=== PATIENT | female | born 1980 | race Caucasian/White ===

== ENCOUNTER 2020-06-21 11:31 | Emergency (ER) | payer OTHER ==
[~2020-06-21] VITALS: Ht 165.1 cm; Wt 72.6 kg
[2020-06-21] MEDS ORDERED: LYRICA 75 MG CA75 MG PO (11:45)
[2020-06-21] MEDS ORDERED: NEURONTIN 300M300 M2 PO (11:45)
[2020-06-21] MEDS ORDERED: IBUPROFEN 800800 M1 PO (11:46)
[2020-06-21] MEDS ORDERED: TYLENOL325 MG PO (11:47)
[2020-06-21] MEDS ORDERED: KEFLEX500 M1 PO (13:06)
[2020-06-21] MEDS ORDERED: PERCOCET 5-3251 EACH PO (13:15)
[2020-06-21 13:29] VITALS: BP 105/65
== END 2020-06-21 13:30 | disposition home or self-care (01) ==
LOC: M.ERS 11:31
DX: S61.217A Laceration without foreign body of left little finger without damage to nail, initial encounter (principal); Z88.1 Allergy status to other antibiotic agents; Z91.041 Radiographic dye allergy status; Z88.5 Allergy status to narcotic agent; Z88.6 Allergy status to analgesic agent; X58.XXXA Exposure to other specified factors, initial encounter; Y93.89 Activity, other specified; Y92.89 Other specified places as the place of occurrence of the external cause; Y99.8 Other external cause status